=== PATIENT | female | born 1960 | race Caucasian/White ===

== ENCOUNTER → 2016-07-02 | Outpatient (CLI) | payer BC ==
--- NOTE | 2016-07-03 08:37 | USB ---
Reason for exam: follow-up at short interval from prior study. History: Family history of breast cancer in maternal grandmother at age 60 and breast cancer in sister at age 55. Excisional biopsy, 2015. Benign right breast aspiration of the right breast, May 02, 2013. Cancelled Right US Needle Biopsy of the right breast, January 19, 2007. Cancelled Right US Aspiration of both breasts, July 31, 2005. Took hormonal contraceptives for 1 year 6 months beginning at age 34. Physical Findings: Nurse did not find any significant physical abnormalities on exam. US Breast Limited BILAT Right breast ultrasound demonstrates a 0.5 x 0.5 x 0.4cm oval, cystic lesion at 3 o'clock and a 0.8 x 0.4 x 0.7cm oval, cystic lesion at 4 o'clock. Left breast ultrasound includes all four quadrants, the retroareolar region and axilla. Finding demonstrates a 2.0 x 1.4 x 2.3cm oval, thick walled, cystic, vascular, peripheral, painful lesion at 1 o'clock, palpable, for which an aspiration is recommended and a 1.0 x 0.4 x 0.9cm oval, cystic lesion at 7 o'clock, palpable. These results were verbally communicated with the patient and result sheet given to the patient on 07/02/16. ASSESSMENT: Suspicious, BI-RAD 4 RECOMMENDATION: Aspiration of the left breast. (1 o'clock) Called with mammographic findings and has scheduled an appointment for the patient for 07/17/16 at 8:[address] Rubin. Cyst aspiration scheduled for 07/11/16 at 8 o'clock. PRELIMINARY REPORT CALLED AND FAXED TO DR. RUBIN ON 07/03/16 AT 300/TP.
== END | disposition home or self-care (01) ==
LOC: RADUSWWP 14:51
PROVIDERS: ATTEND Surgery
DX: R92.8 Other abnormal and inconclusive findings on diagnostic imaging of breast (principal)

== ENCOUNTER → 2016-07-11 | Day surgery (SDC) | payer BC ==
[~2016-07-11] MED LIST: BACITRACIN OINT 1 EACH PACKET TOPICAL ONE; LIDOCAINE 1% INJ 10MG/ML (20 ML MDV) ONE; SODIUM BICARB 4% 5 ML VIAL (0.48 MEQ/ML) ONE
--- NOTE | 2016-07-11 10:29 | USB ---
EXAMINATION TYPE: US breast aspiration single LT DATE OF EXAM: 07/11/2016 9:51 AM CLINICAL HISTORY: R92.8 Prev abn.mammogram/ultrasound. Painful left breast cyst at palpable. TECHNIQUE: Ultrasound guided fine-needle aspiration and/or core biopsy of left breast with possible c lip placement. COMPARISON: Prior bilateral breast ultrasound July 02, 2016 FINDINGS: The procedure of ultrasound guided fine-needle aspiration and/or core biopsy was explained to the patient. Benefits, alternatives, and risks were discussed. An informed consent was then obta ined. The patient was placed in supine positioning for imaging and for the procedure. Preprocedure imaging redemonstrates slightly lobulated mildly thick-walled 2.2 x 1.4 cm cyst in the left breast 1:00 zone a is painful. The overlying skin was prepped and draped in usual sterile fashion. Lidocaine buffere d with bicarbonate was used as anesthetic into the skin and subcutaneous tissue up to area of concern in the left breast. Under ultrasound guidance, a 22-gauge needle was placed into lesion. There is complete aspiration of 3 cc of straw-colored fluid. No bloody component is identified. Because of this biopsy clip is not de ployed. Fluid is not sent. The patient tolerated the procedure well without any immediate complication. The patient was kept in the radiology department for short stay after the procedure and then discharged home in stable condi tion. IMPRESSION: Successful, uncomplicated ultrasound guided core fine-needle aspiration of painful debris -filled cyst in the left breast.
== END ==
LOC: RADUSWWP 07:32
PROVIDERS: ATTEND Surgery
DX: N60.02 Solitary cyst of left breast (principal); R92.8 Other abnormal and inconclusive findings on diagnostic imaging of breast
CPT/HCPCS: 76942; 19000; J2001

== ENCOUNTER → 2017-01-20 | Outpatient (CLI) | payer BC ==
--- NOTE | 2017-01-20 16:19 | BD ---
EXAMINATION TYPE: MG DEXA axial skeleton. DATE OF EXAM: 01/20/2017 COMPARISON: NONE CLINICAL HISTORY: 56-year-old female encounter for screening for osteoporosis Height: 64.5 IN Weight: 179 LBS FRAX RISK QUESTIONS: Alcohol (3 or more units per day): NO Family History (Parent hip fracture): NO Glucocorticoids (More than 3mos): NO (Ex: prednisone, prednisolone, methylprednisolone, dexamethasone, and hydrocortisone). History of Fracture in Adulthood: NO Secondary Osteoporosis: 1. Type 1 Diabetes: NO 2. Hyperthyroidism: NO 3. Menopause before 45: NO 4. Malnutrition: NO 5. Chronic liver disease: NO Rheumatoid Arthritis: NO Current Tobacco Use: YES RISK FACTORS HISTORY OF: Active: YES Diet low in dairy products/other sources of calcium: YES Postmenopausal woman: AGE 54 MEDICATIONS: Additional Medications: NONE EXAM MEASUREMENTS: Bone mineral densitometry was performed using the [employer] System. Bone mineral density as measured about the Lumbar spine is: ----- L1-L4(G/cm2): 1.228 T Score Values are as follows: ----- L2: -0.7 ----- L3: 0.9 ----- L4: 1.2 ----- L1-L4: 0.4 Bone mineral density BASELINE Bone mineral density about the R hip (g/cm2): 0.962 Bone mineral density about the L hip (g/cm2): 1.111 T Score values are as follows: -----R Neck: -0.5 -----L Neck: 0.5 -----R Total: 0.3 -----L Total: 1.2 Bone mineral density BASELINE IMPRESSION: Normal (Values between +1 and -1 indicate normal bone mass). Consider repeating this study in 5 year s or sooner if there is some new clinical indication. NOTE: T-SCORE=SD OF THE YOUNG ADULT MEAN.
== END | disposition home or self-care (01) ==
LOC: RADBDWWP 08:35
PROVIDERS: ATTEND Obstetrics & Gynecology
DX: Z13.820 Encounter for screening for osteoporosis (principal); N95.1 Menopausal and female climacteric states
CPT/HCPCS: 77080

== ENCOUNTER → 2018-01-19 | Outpatient (CLI) | payer BC ==
--- NOTE | 2018-01-20 08:15 | MM ---
Reason for exam: additional evaluation requested from prior study. Last mammogram was performed 1 year ago. History: Family history of breast cancer in maternal grandmother at age 60 and breast cancer in sister at age 55. US breast aspiration single LT of the left breast, July 11, 2016. Excisional biopsy, 2014. Benign right breast aspiration of the right breast, May 02, 2013. Cancelled Right US Needle Biopsy of the right breast, January 19, 2007. Cancelled Right US Aspiration of both breasts, July 31, 2005. Took hormonal contraceptives for 1 year 6 months beginning at age 34. Physical Findings: Nurse Summary: 0.5 x 1.0cm nodule in the left breast at 6 o'clock (nurse ts). MG 3D Diag Mammo W/Cad DARCY Bilateral CC and MLO view(s) were taken. Prior study comparison: January 15, 2017, bilateral MG 3d diag mammo w/cad DARCY. January 14, 2016, bilateral MG 3d screening mammo w/cad. The breast tissue is heterogeneously dense. This may lower the sensitivity of mammography. Finding #1: There is a typically benign equal density (isodense), obscured round mass located 4 cm from the nipple in the 6 o'clock posterior position of the left breast. Finding #2: There are typically benign fine diffuse/scattered calcifications in the left breast. Previous mammotome biopsy in the right breast. These results were verbally communicated with the patient and result sheet given to the patient on 01/19/18. ASSESSMENT: Benign, BI-RAD 2 RECOMMENDATION: Ultrasound of the right breast in 6 months.
--- NOTE | 2018-01-20 08:19 | USB ---
Reason for exam: additional evaluation requested from prior study. History: Family history of breast cancer in maternal grandmother at age 60 and breast cancer in sister at age 55. US breast aspiration single LT of the left breast, July 11, 2016. Excisional biopsy, 2014. Benign right breast aspiration of the right breast, May 02, 2013. Cancelled Right US Needle Biopsy of the right breast, January 19, 2007. Cancelled Right US Aspiration of both breasts, July 31, 2005. Took hormonal contraceptives for 1 year 6 months beginning at age 34. US Breast BILAT Right complete breast ultrasound includes all four quadrants, the retroareolar region and axilla. Finding demonstrates a 0.6 x 0.5 x 0.5cm oval, hypoechoic, questionable cyst cluster at 12 o'clock, 6 month follow up recommended, a 0.4 x 0.4 x 0.4cm round, hypoechoic, questionable cyst at 1 o'clock, a 5.3 x 0.3 x 0.4cm oval, hypoechoic, questionable cyst at 7 o'clock that corresponds to mammogram and a 0.4 x 0.3 x 0.5cm oval, hypoechoic, questionable cyst at 7 o'clock that corresponds to mammogram. Left complete breast ultrasound includes all four quadrants, the retroareolar region and axilla. Finding demonstrates a 0.5 x 0.2 x 0.4cm oval, hypoechoic, questionable cyst at 3 o'clock, a 1.0 x 0.4 x 1.0cm oval, cystic lesion at 6 o'clock BB and a 0.6 x 0.3 x 0.5cm oval, cystic lesion at the posterior nipple. These results were verbally communicated with the patient and result sheet given to the patient on 01/19/18. ASSESSMENT: Probably benign, BI-RAD 3 RECOMMENDATION: Ultrasound of the right breast in 6 months.
== END | disposition home or self-care (01) ==
LOC: RADMAMWWP 14:21
PROVIDERS: ATTEND Surgery
DX: N60.09 Solitary cyst of unspecified breast (principal); R92.8 Other abnormal and inconclusive findings on diagnostic imaging of breast
CPT/HCPCS: 77062; 77066

== ENCOUNTER → 2018-07-21 | Outpatient (CLI) | payer BC ==
--- NOTE | 2018-07-21 09:49 | USB ---
Reason for exam: follow-up at short interval from prior study. History: Family history of breast cancer in maternal grandmother at age 60 and breast cancer in sister at age 55. US breast aspiration single LT of the left breast, July 11, 2016. Excisional biopsy, 2014. Benign right breast aspiration of the right breast, May 02, 2013. Cancelled Right US Needle Biopsy of the right breast, January 19, 2007. Cancelled Right US Aspiration of both breasts, July 31, 2005. Took hormonal contraceptives for 1 year 6 months beginning at age 34. Physical Findings: Nurse Summary: left breast palpable 6 o'clock at nipple 0.5 x 0.5cm, soft, movable, bilateral nodularity, all soft, nodular, movable (nurse ts). US Breast RT Right complete breast ultrasound includes all four quadrants, the retroareolar region and axilla. Finding demonstrates a 0.7 x 0.7 x 0.9cm mixed lesion at 1 o'clock, larger from 6 x 5 x 4mm, a cyst cluster remains favored, continued follow up recommended, a 0.4 x 0.4 x 0.4cm benign, cystic lesion at 1 o'clock and a 0.6 x 0.4 x 0.5cm benign, cystic lesion at 7 o'clock. These results were verbally communicated with the patient and result sheet given to the patient on 07/21/18. ASSESSMENT: Probably benign, BI-RAD 3 RECOMMENDATION: Follow-up diagnostic mammogram of both breasts in 6 months. Ultrasound of the right breast in 6 months. (attention 1 o'clock)
== END | disposition home or self-care (01) ==
LOC: RADUSWWP 08:43
PROVIDERS: ATTEND Surgery
DX: R92.8 Other abnormal and inconclusive findings on diagnostic imaging of breast (principal)

== ENCOUNTER → 2019-01-20 | Outpatient (CLI) | payer BC ==
--- NOTE | 2019-01-20 13:28 | MM ---
Reason for exam: additional evaluation requested from prior study. Last mammogram was performed 1 year ago. History: Family history of breast cancer in maternal grandmother at age 60 and breast cancer in sister at age 55. US breast aspiration single LT of the left breast, July 11, 2016. Excisional biopsy, 2014. Benign right breast aspiration of the right breast, May 02, 2013. Cancelled Right US Needle Biopsy of the right breast, January 19, 2007. Cancelled Right US Aspiration of both breasts, July 31, 2005. Took hormonal contraceptives for 1 year 6 months beginning at age 34. Physical Findings: Nurse did not find any significant physical abnormalities on exam. MG 3D Diag Mammo W/Cad DARCY Bilateral CC and MLO view(s) were taken. Prior study comparison: January 19, 2018, bilateral MG 3d diag mammo w/cad DARCY. January 15, 2017, bilateral MG 3d diag mammo w/cad DARCY. The breast tissue is heterogeneously dense. This may lower the sensitivity of mammography. There are benign appearing round, oval, circumscribed masses, most commonly cysts. Prior bilateral ultrasound demonstrates numerous bilateral cysts. Benign appearing bilateral calcifications. Right biopsy marker. Post excisional change on the left stable back to the most recent 3D exam of 2014. These results were verbally communicated with the patient and result sheet given to the patient on 01/20/19. ASSESSMENT: Benign, BI-RAD 2 RECOMMENDATION: Routine screening mammogram of both breasts in 1 year.
--- NOTE | 2019-01-20 13:30 | USB ---
Reason for exam: follow-up at short interval from prior study. History: Family history of breast cancer in maternal grandmother at age 60 and breast cancer in sister at age 55. US breast aspiration single LT of the left breast, July 11, 2016. Excisional biopsy, 2014. Benign right breast aspiration of the right breast, May 02, 2013. Cancelled Right US Needle Biopsy of the right breast, January 19, 2007. Cancelled Right US Aspiration of both breasts, July 31, 2005. Took hormonal contraceptives for 1 year 6 months beginning at age 34. US Breast Limited RT Right limited breast ultrasound including focal area of concern, retroareolar and axilla demonstrates a 8 x 7 x 8mm lobular, cystic, mixed lesion at 1 o'clock (0.8 x 0.7cm on prior) and a 4 x 4 x 4mm oval, cystic, mixed lesion at 1 o'clock (0.4 x 0.4cm on prior 07/21/18 and similar to 01/19/18, cysts in 2015). These results were verbally communicated with the patient and result sheet given to the patient on 01/20/19. ASSESSMENT: Benign, BI-RAD 2 RECOMMENDATION: Routine screening mammogram of both breasts in 1 year.
== END | disposition home or self-care (01) ==
LOC: RADMAMWWP 09:31
PROVIDERS: ATTEND Surgery
DX: R92.8 Other abnormal and inconclusive findings on diagnostic imaging of breast (principal)
CPT/HCPCS: 77062; 77066

== ENCOUNTER → 2022-02-05 | Outpatient (CLI) | payer BC ==
--- NOTE | 2022-02-05 13:17 | BD ---
EXAMINATION TYPE: Axial Bone Density DATE OF EXAM: 02/05/2022 COMPARISON: NONE CLINICAL HISTORY: 61 year old Female. ICD-10 CODE: N95.1 menopausal Height: 64 Weight: 185.8 FRAX RISK QUESTIONS: Alcohol (3 or more units per day): no Family History (Parent hip fracture): no Glucocorticoids (More than 3mos): yes (Ex: prednisone, prednisolone, methylprednisolone, dexamethasone, and hydrocortisone). History of Fracture in Adulthood: no Secondary Osteoporosis: 1. Type 1 Diabetes: no 2. Hyperthyroidism: no 3. Menopause before 45: no 4. Malnutrition: no 5. Chronic liver disease: no Rheumatoid Arthritis: yes Current Tobacco Use: yes RISK FACTORS HISTORY OF: Surgery to Spine/Hip(right/left)/Wrist (right/left): no Family History of Osteoporosis: no Active: yes Diet low in dairy products/other sources of calcium: yes Postmenopausal woman: yes Lost more than 2 inches in height since high school: just 2 inches MEDICATIONS: folic acid, methotrexate Prednisone or other steroids: yes How Long: just a few weeks- just got diagnosed with rheumatoid arthritis Additional History: EXAM MEASUREMENTS: Bone mineral densitometry was performed using the [employer] System. Bone mineral density as measured about the Lumbar spine is: ----- L1-L4(G/cm2): 1.186 T Score Values are as follows: ----- L1: -0.3-0.7 ----- L2: -0.7 ----- L3: 0.3 ----- L4: 0.6 ----- L1-L4: 0.0 Bone mineral density has: decreased -4.2 % since study of: 01.20.2017 Bone mineral density about the R hip (g/cm2): 1.067 Bone mineral density about the L hip (g/cm2): 0.947 T Score values are as follows: -----R Neck: 0.2 -----L Neck: -0.4 -----R Total: 0.4 -----L Total: 0.9 Bone mineral density has: decreased -1.0 % since study of: 01.20.2017 FRAX%s: The graph provided illustrates a 3.8% chance for a major osteoporotic fx and a 0.5% chance fo r the hips probability for fx in 10 years time. IMPRESSION: Normal (Values between +1 and -1 indicate normal bone mass). Consider repeating this study in 5 year s or sooner if there is some new clinical indication. NOTE: T-SCORE=SD OF THE YOUNG ADULT MEAN.
--- NOTE | 2022-02-05 16:10 | MM ---
Reason for Exam: Screening (asymptomatic). Last mammogram was performed 3 year(s) and 0 month(s) ago. Patient History: Menarche at age 13. First Full-Term at age 21. Hormonal Contraceptives for 1 year, 6 months, from age 34 until age 36. 2014, Excisional Biopsy. 07/11/2016, Cyst Aspiration on the Left side. 05/02/2013, Benign Cyst Aspiration on the right side. 01/19/2007, Cancelled Right US Needle Biopsy on the right side. 07/31/2005, Bilateral Cancelled Right US Aspiration. Maternal grandmother had breast cancer, age 60. Sister had breast cancer, age 55. Risk Values: Yesi 5 year model risk: 3.1%. NCI Lifetime model risk: 13.7%. Prior Study Comparison: 01/15/2017 Bilateral Diagnostic Mammogram, [facility]. 01/19/2018 Bilateral Diagnostic Mammogram, [facility]. 01/20/2019 Bilateral Diagnostic Mammogram, [facility]. Tissue Density: The breast tissue is heterogeneously dense. This may lower the sensitivity of mammography. Findings: Analyzed By CAD. Scattered punctate calcifications. There is no suspicious group of microcalcifications or new suspicious mass in either breast. Overall Assessment: Benign, BI-RAD 2 Management: Screening Mammogram of both breasts in 1 year. A clinical breast exam by your physician is recommended on an annual basis and results should be correlated with mammographic findings. [facility] will attempt to contact patient to return for supplemental views and ultrasound if indicated. Electronically signed and approved by: Angelo Dolan DO
== END | disposition home or self-care (01) ==
LOC: RADBDWWP 09:19
PROVIDERS: ATTEND Obstetrics & Gynecology
DX: Z12.31 Encounter for screening mammogram for malignant neoplasm of breast (principal); N95.1 Menopausal and female climacteric states; Z80.3 Family history of malignant neoplasm of breast
CPT/HCPCS: 77063; 77067; 77080

== ENCOUNTER → 2023-02-18 | Outpatient (CLI) | payer BC ==
--- NOTE | 2023-02-22 18:10 | MM ---
Reason for Exam: Screening (asymptomatic). Last mammogram was performed 1 year(s) and 1 month(s) ago. Patient History: Menarche at age 13. First Full-Term at age 21. Hormonal Contraceptives for 1 year, 6 months, from age 34 until age 36. 2014, Excisional Biopsy. 07/11/2016, Cyst Aspiration on the Left side. 05/02/2013, Benign Cyst Aspiration on the right side. 01/19/2007, Cancelled Right US Needle Biopsy on the right side. 07/31/2005, Bilateral Cancelled Right US Aspiration. Maternal grandmother had breast cancer, age 60. Sister had breast cancer, age 55. Risk Values: Yesi 5 year model risk: 3.2%. NCI Lifetime model risk: 13.3%. Prior Study Comparison: 01/19/2018 Bilateral Diagnostic Mammogram, [facility]. 01/20/2019 Bilateral Diagnostic Mammogram, [facility]. 02/05/2022 Bilateral MG 3D screening mammo w/cad, [facility]. Tissue Density: The breast tissue is heterogeneously dense. This may lower the sensitivity of mammography. Findings: Analyzed By CAD. Microclip right breast from prior biopsy. There are redemonstrated diffuse punctate calcifications on both sides. There is no suspicious group of microcalcifications or new suspicious mass in either breast. Overall Assessment: Benign, BI-RAD 2 Management: Screening Mammogram of both breasts in 1 year. See note below in regards to patient's increased 5 year Yesi score. Patient should continue monthly self-breast exams. A clinical breast exam by your physician is recommended on an annual basis. This exam should not preclude additional follow-up of suspicious palpable abnormalities. Note on Yesi scores and lifetime risk: 1. A Yesi score greater than 3% is considered moderate risk. If this is the case, consider specialist referral to assess eligibility for a risk reducing agent. 2. If overall lifetime risk for the development of breast cancer is 20% or higher, the patient may qualify for future screening with alternating mammogram and breast MRI. Electronically signed and approved by: Mindy Summers M.D. Radiologist
== END | disposition home or self-care (01) ==
LOC: RADMAMWWP 16:16
PROVIDERS: ATTEND Obstetrics & Gynecology
DX: Z12.31 Encounter for screening mammogram for malignant neoplasm of breast (principal); Z80.3 Family history of malignant neoplasm of breast
CPT/HCPCS: 77063; 77067

== ENCOUNTER → 2024-09-28 | Outpatient (CLI) | payer BC ==
--- NOTE | 2024-09-28 10:19 | US ---
EXAMINATION TYPE: US abdomen complete DATE OF EXAM: 09/28/2024 COMPARISON: NONE CLINICAL INDICATION: Female, 64 years old with history of R74.01 ELEVATION OF LEVELS OF LIVER TRANSAM INASE L; Elevated labs TECHNIQUE: Grayscale and color Doppler imaging of the abdomen was performed. FINDINGS: EXAM MEASUREMENTS: Liver Length: 16.6 cm Gallbladder Wall: 0.2 cm CBD: 0.6 cm, color Doppler imaging was utilized to isolate the common bile duct for measurement. Spleen: 13.4 cm Right Kidney: 9.5 x 4.0 x 5.3 cm Left Kidney: 11.5 x 4.3 x 5.3 cm OFFICE SERVICES COORDINATOR NOTES: Exam limited by overlying bowel gas and patient body habitus. Pancreas: Most of the pancreatic body and tail are obscured by bowel gas shadowing. Visualized head and neck show no gross abnormality. Liver: Mild increased echogenicity. No focal lesion. Gallbladder: Numerous gallstones measuring up to 1.6 cm nearly filling the gallbladder lumen. No wal l thickening or surrounding fluid. Evidence for sonographic Pineda's sign: No CBD: Borderline caliber. Spleen: Borderline enlarged. Right Kidney: wnl, No hydronephrosis, calculi or masses seen Left Kidney: wnl, No hydronephrosis, calculi or masses seen Upper IVC: wnl Abd Aorta: wnl IMPRESSION: 1. At least mild hepatic steatosis. Correlate with LFTs, lipid profile, and patient risk factors. 2. Bile duct borderline in caliber at 6 mm. This may be acceptable given patient's age. Correlate wit h alkaline phosphatase and bilirubin levels. 3. Numerous gallstones measuring up to 1.6 cm. 4. Borderline splenomegaly at 13.4 cm. [facility], , 09/28/2024 10:17 AM
== END | disposition home or self-care (01) ==
LOC: RADUSWWP 08:32
PROVIDERS: ATTEND Emergency Medicine
DX: K76.0 Fatty (change of) liver, not elsewhere classified (principal); R74.01 Elevation of levels of liver transaminase levels; K80.20 Calculus of gallbladder without cholecystitis without obstruction
CPT/HCPCS: 76700